=== PATIENT | female | born 1965 | race Caucasian/White ===

== ENCOUNTER → 2018-05-18 14:03 | Outpatient (CLI) | payer OTHER, SELFPAY | PROVIDERS: Family Provider Family Medicine; PCP Family Medicine; Visit Provider Internal Medicine Endocrinology, Diabetes & Metabolism | DX: M85.852 Other specified disorders of bone density and structure, left thigh (principal); E83.52 Hypercalcemia; E21.3 Hyperparathyroidism, unspecified; Z82.62 Family history of osteoporosis; Z87.891 Personal history of nicotine dependence | CPT/HCPCS: 77080 ==

== ENCOUNTER → 2019-09-01 14:05 | Outpatient (CLI) | payer OTHER, SELFPAY | PROVIDERS: Family Provider Family Medicine; PCP Family Medicine; Referring Provider Internal Medicine Endocrinology, Diabetes & Metabolism; Visit Provider Internal Medicine Endocrinology, Diabetes & Metabolism | DX: M85.852 Other specified disorders of bone density and structure, left thigh (principal); E21.3 Hyperparathyroidism, unspecified; E07.9 Disorder of thyroid, unspecified; Z87.891 Personal history of nicotine dependence | CPT/HCPCS: 77080 ==

== ENCOUNTER → 2023-03-23 12:21 | Outpatient (CLI) | payer OTHER, SELFPAY ==
--- NOTE | 2023-03-23 | DI.NM.S_ITS ---
PROCEDURE: [place] PARATHYROID SPECT RADIOPHARMACEUTICAL: 26.3 mCi Tc-99m sestamibi IV. INDICATIONS: HYPERCALCEMIA TECHNIQUE: After intravenous administration of Tc-99m sestamibi, anterior planar images of the neck and mediastinum were obtained at approximately 10 minutes and 2-3 hours. SPECT images were acquired after the 10 minute planar images. COMPARISON: [place], [place], PARATHYROID IMAGING WITH SPECT, 04/28/2017, 10:20. FINDINGS: On the early images, the thyroid gland is bilobed and has normal size and morphology. Again seen is increased activity within the left lobe of the thyroid on early images, similar to prior. Minimally increased activity on delayed imaging is seen. Within the left upper mediastinum, there is a focus of increased activity on early images which minimally persists on delayed imaging. IMPRESSION: Similar to prior, there is increased activity within the left thyroid bed on early imaging with possible minimally increased activity in this region on delayed imaging. Within the left upper mediastinum, there is a small focus of increased activity on early images which minimally persists on delayed imaging, an ectopic adenoma is not excluded. Consider parathyroid protocol CT for further evaluation. Dictated by: Ho Fair M.D. on 03/24/2023 at 9:45 Approved by: Ho Fair M.D. on 03/24/2023 at 10:14
== END ==
LOC: NUCM 12:21
PROVIDERS: Family Provider Family Medicine; PCP Family Medicine; Referring Provider Internal Medicine Endocrinology, Diabetes & Metabolism; Visit Provider Internal Medicine Endocrinology, Diabetes & Metabolism
DX: E21.3 Hyperparathyroidism, unspecified (principal)
CPT/HCPCS: 78071; A9500

== ENCOUNTER → 2023-04-22 13:53 | Outpatient (CLI) | payer OTHER, SELFPAY ==
--- NOTE | 2023-04-22 13:56 | DI.CT.S_ITS ---
PROCEDURE: CT SOFT TISSUE NECK W CON INDICATIONS: Hyperparathyroidism TECHNIQUE: After the administration of intravenous contrast, 3.0 mm axial sections acquired from the sella to the aortic arch. Additional oblique axial 3.0 mm sections acquired through the pharynx. 3 mm thick coronal and sagittal reformats were generated. For radiation dose reduction, the following was used: automated exposure control. COMPARISON: [place], [place], [place] PARATHYROID SPECT, 03/23/2023, 12:35. FINDINGS: Image quality: Excellent. Lymph nodes: Numerous lymph nodes within the, greater than typically expected. There are borderline enlarged with the most prominent in the left level 2A measuring 1 cm. Vessels: Visualized vasculature appears patent. Neck spaces: The oropharynx, nasopharynx, and pharynx demonstrate no mucosal lesions. The vocal cords, false vocal cords, pyriform sinuses, epiglottis, vallecula, and tongue base all appear normal. Extramucosal spaces appear unremarkable. Glands: The parotid and submandibular glands appear normal. Thyroid gland demonstrates no thyroid mass. Miscellaneous: Visualized brain and orbits appear normal. Lung apices appear clear. Superficial soft tissues appear normal. Mm left superior mediastinal soft tissue density on series 2, image 2 is present inferior to the thyroid lobe. This corresponds to focus of uptake identified parathyroid exam 03/23/2023. Bones: No suspicious bony lesions. Visualized sinuses and mastoids appear unremarkable. IMPRESSION: Soft tissue density within the left superior mediastinum possibly corresponding to area increased uptake on recent parathyroid scan. Parathyroid adenoma cannot be excluded. However, arterial and delayed phase contrast opacification is required for further evaluation of potential adenoma and CT with parathyroid protocol is recommended. Dictated by: Hermila Gonzalez M.D. on 04/22/2023 at 22:03 Approved by: Hermila Gonzalez M.D. on 04/22/2023 at 22:07
[2023-04-22 14:31] LABS: Estimated Glomerular Filt Rate > 60 mL/min (>60)
== END ==
PROVIDERS: Radiology Diagnostic Radiology; Family Provider Family Medicine; PCP Family Medicine; Referring Provider Internal Medicine Endocrinology, Diabetes & Metabolism; Visit Provider Internal Medicine Endocrinology, Diabetes & Metabolism
DX: E21.3 Hyperparathyroidism, unspecified (principal)
CPT/HCPCS: 36415; 70491; 82565; Q9967

== ENCOUNTER → 2023-04-30 14:42 | Outpatient (CLI) | payer OTHER, SELFPAY ==
--- NOTE | 2023-04-30 14:43 | DI.CT.S_ITS ---
PROCEDURE: CT SOFT TISSUE NECK WO/W CON INDICATIONS: Disorder of parathyroid gland, unspecified TECHNIQUE: Before and after the administration of intravenous contrast, 2.0 mm axial sections acquired through the neck and down to the berenice. Additional 2.0 mm coronal and sagittal reformats were generated of the contrast enhanced images. For radiation dose reduction, the following was used: automated exposure control. COMPARISON: [facility], CT, CT SOFT TISSUE NECK W CON, 04/22/2023, 15:09. FINDINGS: Image quality: Excellent. Parathyroid: Within the upper mediastinum, there is a 9 x 8 mm focus of soft tissue attenuation which demonstrates arterial enhancement with washout. This enhancement pattern is different from surrounding lymph nodes and difference in the thyroid gland. Findings are suspicious for parathyroid adenoma. Thyroid: Right thyroid lobe is small compared to the left. Left thyroid lobe is normal in appearance. Surgical clips along the inferior aspect of the left thyroid lobe. No thyroid nodules are seen. Lymph nodes: No enlarged lymph nodes seen throughout the neck. Vessels: Visualized vasculature appears patent. Atherosclerotic vascular calcifications. Neck spaces: The oropharynx, nasopharynx, and pharynx demonstrate no mucosal lesions. The vocal cords, false vocal cords, pyriform sinuses, epiglottis, vallecula, and tongue base all appear normal. Extramucosal spaces appear unremarkable. Glands: The parotid and submandibular glands appear normal. Miscellaneous: Visualized lungs appear clear. Superficial soft tissues appear normal. Bones: No suspicious bony lesions. Degenerative changes of the spine. Visualized sinuses and mastoids appear unremarkable. IMPRESSION: Soft tissue lesion within the superior mediastinum which may respond to the area of increased uptake on prior parathyroid scan. This lesion demonstrates arterial enhancement washout, a different enhancement pattern than the adjacent lymph nodes and in the thyroid gland. Findings are suspicious for parathyroid adenoma. Dictated by: Ho Fair M.D. on 04/30/2023 at 16:00 Approved by: Ho Fair M.D. on 04/30/2023 at 16:11
== END ==
PROVIDERS: Family Provider Family Medicine; PCP Family Medicine; Referring Provider Internal Medicine Endocrinology, Diabetes & Metabolism; Visit Provider Internal Medicine Endocrinology, Diabetes & Metabolism
DX: E21.5 Disorder of parathyroid gland, unspecified (principal); J98.59 Other diseases of mediastinum, not elsewhere classified; E21.3 Hyperparathyroidism, unspecified
CPT/HCPCS: 70492; Q9967

== ENCOUNTER → 2023-10-22 09:50 | Outpatient (CLI) | payer OTHER, SELFPAY ==
--- NOTE | 2023-10-22 09:51 | DI.RAD.S_ITS ---
PROCEDURE: XR DEXA AXIAL SKELETON INDICATIONS: OSTEOPOROSIS,HYPERCALCEMIA,OSTEPENIA BI HIPS COMPARISON: [facility], [place], XR DEXA AXIAL SKELETON, 09/01/2019, 14:32. FINDINGS: Lumbar Spine: Bone mineral density 0.905 g/cm2, T score -1.3. There is interval 4.3% decrease in total lumbar spine bone mineral density. Left Hip: Bone mineral density 0.821 g/cm2, T score -1.0. There is interval 2% decrease in total left hip bone mineral density. Left Femoral Neck: Bone mineral density 0.587 g/cm2, T score -2.4. There is interval 9.7% decrease in left femoral neck bone mineral density. Right Hip: Bone mineral density 0.886 g/cm2, T score -0.5. There is no 3.1% increase in right total hip bone mineral density. Right Femoral Neck: Bone mineral density 0.691 g/cm2, T score -1.4. There is interval 4.8% increase in right femoral neck bone mineral density. Fracture Risk Calculation (when applicable): 10-year fracture risk of a major osteoporotic fracture 30% and of a hip fracture 2.8%. (T score greater or equal to -1.0 to: NORMAL) (T score from -1.1 to -2.4: OSTEOPENIA) (T score less than or equal to -2.5: OSTEOPOROSIS) IMPRESSION: Osteopenia with increased 10 year fracture risk as above. Follow-up guidelines as follows: Osteoporosis: Consider a repeat DEXA and Vertebral Fracture Assessment (VFA) exam in 2 years or sooner if medically necessary, to reassess this patient's status. Osteopenia: Consider a repeat DEXA in 2-3 years to reassess this patient's status, or if there is a new clinical indication. Normal: Consider a repeat DEXA in 5 years or sooner, or if there is a new clinical indication. All treatment decisions require clinical judgment and consideration of individual patient factors, including patient preferences, comorbidities, previous drug use, risk factors not captured in the FRAX model (e.g., frailty, falls, vitamin D deficiency, increased bone turnover, interval significant decline in bone density ) and possible under- or over-estimation of fracture risk by FRAX. In addition, the NOF Guide recommends that FDA-approved medical therapies be considered in postmenopausal women and men age >= 50 years with a: * Hip or vertebral (clinical or morphometric) fracture * T-score of <=-2.5 at the spine or hip * Ten-year fracture probability by FRAX of >= 3% for hip fracture or >=20% for major osteoporotic fracture. People with diagnosed cases of osteoporosis or at high risk for fracture should have regular bone mineral density tests. For patients eligible for Medicare, routine testing is allowed once every 2 years. The testing frequency can be increased to one year for patients who have rapidly progressing disease, those who are receiving or discontinuing medical therapy to restore bone mass, or have additional risk factors. Dictated by: Ovidio Estes M.D. on 10/22/2023 at 14:00 Approved by: Ovidio Estes M.D. on 10/22/2023 at 14:02
== END ==
LOC: RAD 09:50
PROVIDERS: Family Provider Family Medicine; PCP Family Medicine; Referring Provider Internal Medicine Endocrinology, Diabetes & Metabolism; Visit Provider Internal Medicine Endocrinology, Diabetes & Metabolism
DX: M81.0 Age-related osteoporosis without current pathological fracture (principal); M85.89 Other specified disorders of bone density and structure, multiple sites; E83.52 Hypercalcemia
CPT/HCPCS: 77080